=== PATIENT | male | born 2005 | race Caucasian/White ===

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

== ENCOUNTER 2025-01-16 21:27 | Emergency (ER) | payer OTHER, SELFPAY ==
[2025-01-16 21:31] VITALS: BP 126/83; PULSE 80; RESP 18; TEMP 36.2; O2SAT 100; BMI 20.1
--- OUTSIDE RECORDS SUMMARY | 2025-01-16 22:02 | XMS RPT_ITS | CCD ---
Author Organization [facility] Care Team Providers Care Aircraft Communicator Name Role Phone BRYNN, DR REY Cadena Admitting Unavaila ble BRYNN, DR REY Cadena Primary Care Unavaila ble BRYNN, DR REY Cadena Attending Unavaila ble NO, DOCTOR ON Consulting Unavailable NO, DOCTOR ON Referring Unavailable BRYNN, DR REY Cadena Admitting Unavaila ble BRYNN, DR REY Cadena Primary Care Unavaila ble BRYNN, DR REY Cadena Attending Unavaila ble NO, DOCTOR ON Consulting Unavailable Aakash Yeung Referring Unavailable Aakash Yeung Primary Care Unavailable Marcos Naranjo Attending Unavailable PETER VICK, SHERINE Attending Unavailable Martell Yeung MD Primary Care Provider Octavio Forrester DO Primary Care Provid er JONELLE HUMPHREYS Attending OCTAVIO [facility] Care OCTAVIO Hensley Attending Soumya land SELF Referring Unavailable VICTORIA FORRESTERLAND DELMER Primary Care Soumya land Medications Current Medications Medication Drug Class(es) Dates Sig (Normalized) Sig (Original) citalopram 20 mg oral tablet (3 sources) Serotonin Reuptake Inhibitor Start: 11-15-2023 End: 02-23-2024 take 0.5 tablet by mouth once daily, then take 1 tablet by mouth once daily citalopram (CELEXA) 20 mg tablet Indications: Anxiety with depression Take 0.5 tablets by mouth once daily for 10 days, THEN 1 tablet once daily. 95 tablet 11/15/2023 Active 24 hr venlafaxine 37.5 mg extended release oral capsule (1 source) Serotonin and Norepinephrine Reuptake Inhibitor Start: 03-10-2024 venlafaxine ER (EFFEXOR XR) 37.5 mg 24 hr capsule Indications: Generalized anxiety disorder , Major depressive disorder, recurrent episode, mild (HCC) Take 1 tablet every morning x 2 weeks, if tolerated increase to 2 tablets every morning. 56 capsule 1 03/10/2024 Active Problems Active Problems Problem Classification Problem Date Documented Da te Episodic/Chronic Anxiety disorders (4 sources) Mixed anxiety and depressive disorder; Translations: [Other specified anxiety disorders] Onset: 11-15-2023 11-15-2023 Chronic Mood disorders (2 sources) Recurrent major depressive episodes, mild ; Translations: [Major depressive disorder, recurrent, mild] Onset: 03-10-2024 03-10-2024 Chronic Open wounds of extremities (1 source) Laceration of upper arm; Translations: [Laceration without foreign body of right upper arm, initial encounter] Onset: 06-13-2023 Episodic Other nutritional; endocrine; and metabolic disorders (1 source) Body mass index less than 20; Translations: [Body mass index (BMI) 19.9 or less, adult] 11-15-2023 Episodic Past or Other Problems Problem Classification Problem Date Documented Da te Episodic/Chronic Other nutritional; endocrine; and metabolic disorders (1 source) Body mass index (BMI) 19.9 or less, adult; Translations: [Body mass index (BMI) less than 19 in adult] Onset: 11-15-2023 Episodic Results Test Name Value Interpretation Reference Range Boyd marcos BAKARIFrederick 03-10-2024 CNOV Office Visit ([id number] ) CLARITZA EVANS ([id number]) 1 M Date Time Provider Department 03/10/24 10:00 AM JONELLE HUMPHREYS [id number] During your visit today, we recorded the following information about you: Jonelle Humphreys APRN.CNP 03/10/2024 12:42 PM Signed [facility]ALUATION PATIENT: Claritza Curieljhon MRD: [id number] DATE: March 10, 2024 IDENTIFYING INFORMATION: Claritza is a 18 year old single male with a history of depression and anxiety. Patient was referred by pcp Dr. Tevin Forrester. CHIEF COMPLAINT: Patient presents with: Anxiety Depression HPI: This is the patients initial assessment. He admits he was having more mood issues over the past few months. He believes his mom is showing care for him. He acknowledges a panic attack in November. None since, but has sparked concern with his mom. He spoke of his concerns of mom having long history of her own MH issues. He admits he avoids some times of avoiding emotions, but is not feeling overly emotional. He admits his GF of a year is encouraging and supportive to him. He spoke of working on being more in tune with his emotions. He spoke of his family having concerns of his mental health for many years. He admits he is not very reactive overall. He states he likes being busy, working in the [employer], as a kid did [employer], he is learning to cook with his GF. He skateboards. He starts and stops interests quickly. Overall he feels he is unsuccessful and has trouble not feeling low self worth. He is not overly pessimistic, but admits he feels insecure. I know I want to do better at adulting. He has deleted most social media to help avoid comparing. Denies SI/HI/ and A/V H. No concern of paranoia, delusions, or psychosis. The patient does not appear to be responding to internal or external stimuli. 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 The routine of his jobs have been difficult. Goes to bed around 930, takes about an hour to fall asleep. Has tried to add routines to sleep hygiene. Wakes around 630. He completes self care regularly. Does not have good diet habits. He has some times of easily getting bored, but does complete tasks. No ocd tendencies. Mild impulsivity, mostly with flipping bikes. He is more interested in impromptu trips. No gambling or promiscuity reported or suspected. He admits the near panic has been occurring since November, but is not hindering him from being productive. He feels he managed it well and has been able to avoid these thoughts well. At age 14, a close friend and this greatly affected him. He does not feel this was a turning point for his anxiety, he had already been struggling with anxiety. Current psychiatric medications: Celexa 20mg --not taking PDMP: 350--hydrocodone 05/13/22 Patient goals for treatment: I am here because of my mom. PSYCHIATRIC ROS: Depression: some sadness, lack of enjoyment with activities. Sara: None reported or suspected Psychosis: None reported or suspected PARKER: Some worry, ruminating, no global worries OCD: No repetitive actions, but some ruminative thoughts. He admits he can be particular about tasks. PTSD: denies ROS SUBSTANCE ABUSE HISTORY: Alcohol: Denies Tobacco: denies Marijuana: denies Illegal drug Use: denies PSYCHIATRIC HISTORY: Past Diagnoses: Anxiety, panic Hospitalizations: denies Counseling history :Began in Middle school d/t panic/anxiety attacks. Medication Trials: Celexa-didn't take regularly, Psychiatrist: Psychiatrist Agency: Denies investment manager: susan Therapist: None Self harm: denies, picky eater. Notable food aversions as a kid, better now. Suicide attempts: denies ECT: No TMS: No Ketamine infusions: No RATING SCALES: PHQ-9 PHQ-9 Score: 8 (03/10/2024 10:00 AM) (0-4) minimal depression, (5-9) mild depression, (10-14) moderate depression, (15-19) moderately severe depression, (20-27) severe depression PARKER-7 PARKER-7 Total Score: 11 (03/10/2024 10:00 AM) (0-4) minimal anxiety, (5-9) mild anxiety, (10-14) moderate anxiety, (15-21) severe anxiety [place] SUICIDE SEVERITY RATING SCALE 1.) Wish to be : Have you wished you were or wished you could go to sleep and not wake up? NO 2.) Suicidal Thoughts: Have you actually had any thoughts of killing yourself? NO 6.)Suicide Behavior Question: Have you ever done anything, started to do anything, or prepared to do anything to end your life?NO RISK LEVEL RISK/PROTECTIVE FACTOR SUICIDALITY POSSIBLE INTERVENTIONS High Psychiatric disorders with severe symptoms, or acute precipitating event; protective factors not relevant Potentially lethal suicide attempt or persistent ideation with strong intent or suicide rehearsal Admission generally indicated unless a significant change reduces risk. Suicide precautions Moderate Multi (more content not included)... Normal [facility] Sebastian 11-16-2023 [facility] Telephone (FPDOYL) CLARITZA EVANS ([id number]) 1 M Date Time Provider Department 11/16/23 OCTAVIO FORRESTERYL During your visit today, we recorded the following information about you: Iwona Gore 11/16/2023 4:25 PM Signed Consult to psychiatry Anxiety with depression Confirm [id number] Iwona Gore Allergies As of Date: 11/16/2023 (No Known Allergies) Date Reviewed: 11/15/2023 Reviewed by: Rosangela Mckeon LPN - Fully Assessed Reason for Visit: Consult [502] Cmt: Consult to psychiatry, anxiety with depression, confirm [id number] Prescriptions as of 11/16/2023 - citalopram (CELEXA) 20 mg tablet Take 0.5 tablets by mouth once daily for 10 days, THEN 1 tablet once daily. Problem List As Of Date: 11/16/2023 (None) Encounter Status:Closed by IWONA GORE on 11/16/23 [facility] CNOVon 11-15-2023 [facility] Office Visit (FPDOYL ) CLARITZA EVANS ([id number]) 1 M Date Time Provider Department 11/15/23 1:30 PM OCTAVIO FORRESTERYL During your visit today, we recorded the following information about you: Temperature Pulse Blood pressure Weight 98.8 degrees 90/minute 124/78 67.6 kg Height 1.854 m Octavio Forrester DO 11/23/2023 9:06 PM Signed [facility] [place] Octavio Forrester DO [address] [place] [address] Date of Evaluation: 11/15/2023 Patient Name: Claritza Evans : 2005 Chief Complaint: Patient presents with: Establish Care Depression: Feeling low the last couple weeks Anxiety: Feels like he has had anxiety for a long time please see depression screening Nursing Intake: There are no exam notes on file for this visit. Subjective Mr. Evans is a 18 year old male who presents with the following complaint(s): The history is provided by the patient. No speech and language tutor was used. Depression The patient's primary symptoms include agitation. Pertinent negatives include no weakness. This is a recurrent problem. The current episode started more than 1 month ago. The problem is unchanged. Past treatments include nothing. Anxiety The patient's primary symptoms include agitation. Pertinent negatives include no weakness. This is a recurrent problem. The current episode started more than 1 month ago. The problem is unchanged. Past treatments include nothing. Review of Systems Constitutional: Negative for fatigue and unexpected weight change. HENT: Negative for nosebleeds. Eyes: Negative for redness and visual disturbance. Respiratory: Negative for apnea, cough and shortness of breath. Cardiovascular: Negative for chest pain, palpitations and leg swelling. Genitourinary: Negative for hematuria. Neurological: Negative for dizziness, weakness, light-headedness, numbness and headaches. Hematological: Does not bruise/bleed easily. Psychiatric/Behavioral : Positive for agitation, depression and dysphoric mood. The patient is nervous/anxious. PAST MEDICAL HISTORY Diagnosis Date Acute appendicitis 12/2019 Frequent headaches Umbilical hernia PAST SURGICAL HISTORY Procedure Laterality Date LAPAROSCOPIC APPENDECTOMY 01/13/2020 TONSILLECTOMY HX Bilateral 2008 FAMILY HISTORY Problem Relation Age of Onset Depression Mother Anxiety disorder Mother Bipolar disorder Mother Hyperlipidemia Father No Known Problems Sister Lung Cancer Maternal Grandmother Cervical Cancer Maternal Grandmother other (Stomach Cancer) Paternal Grandmother Coronary Artery Disease Paternal Grandfather Heart Attack Paternal Grandfather Social History Tobacco Use Smoking status: Never Smokeless tobacco: Never Vaping Use Vaping status: Never Used Substance Use Topics Alcohol use: Never Drug use: Never Current Outpatient Medications Medication Sig citalopram (CELEXA) 20 mg tablet Take 0.5 tablets by mouth once daily for 10 days, THEN 1 tablet once daily. No current facility-administered medications for this visit. I have confirmed and edited as necessary the past medical, family and social histories, HPI, and ROS obtained by others. Objective BP 124/78 Pulse 90 Temp 98.8 Ht 6' 1 (1.85m) Wt 149 lb (67.6kg) SpO2 98% BMI 19.66 kg/(m2). Physical Exam Vitals and nursing note reviewed. Constitutional: General: He is not in acute distress. Appearance: Normal appearance. He is well-developed. He is not ill-appearing. HENT: Head: Normocephalic. Nose: Nose normal. Mouth/Throat: Mouth: Mucous membranes are moist. Pharynx: Oropharynx is clear. Uvula midline. No oropharyngeal exudate or posterior oropharyngeal erythema. Eyes: General: Lids are normal. Vision grossly intact. Gaze aligned appropriately. Extraocular Movements: Extraocular movements intact. Conjunctiva/sclera: Conjunctivae normal. Pupils: Pupils are equal, round, and reactive to light. Neck: Thyroid: No thyroid mass, thyromegaly or thyroid tenderness. Trachea: Trachea and phonation normal. Cardiovascular: Rate and Rhythm: Normal rate and regular rhythm. Pulses: Normal pulses. Heart sounds: Normal heart sounds. Musculoskeletal: General: Normal range of motion. Right shoulder: Normal. Left shoulder: Normal. Cervical back: Normal, full passive range of motion without pain and neck supple. No spinous process tenderness. Thoracic back: Normal. Lumbar back: Normal. Right knee: Normal. Left knee: Normal. Right lower leg: No edema. Left lower leg: No edema. Skin: General: Skin is warm and dry. Neurological: General: No focal deficit present. Mental Status: He is alert and oriented to person, place, and time. Mental status is at baseline. Sensory: (more content not included)... Normal [facility] Office Visit Reporton 2022 Office Visit Report [facility] [address] [place] [address] OFFICE VISIT Date of Service: 03/19/22 MR#: [id number] Acct: [id number] Patient: CLARITZA EVANS Rep #: [id number] : 2005 Provider: PHUC Naranjo Age/Sex: 16/M Location[facility] Status: Signed Intake Intake Visit Reasons: RESP FIT CLEARANCE Chief Complaint: Abdominal pain/fever and occasional nausea Allergies No Known Allergies Allergy (Verified 01/13/20 02:05) Office Procedures Now [facility] Billing Sheet Testing Respirator Clearance (form only): Yes 03/19/22 1520 Date Marcos Cowan Signature: Date (if applicable) CC: Normal [facility] CORONAVIRUS PCR - [facility] 07-12-2020 SARS-CoV-2 (COVID-19) RNA JINNY+probe Ql (Unsp spec) Negative Normal NORMAL: NEGATIVE [facility] Comment on above: Performed By: #### [id number] #### [facility],[address] [place] [address] SEND TO IC? YES Normal [facility] Comment on above: Result Comment: RESU LTS FAXED TO INFECTION CONTROL. SARS-CoV-2 THIS TEST IS BEING USED UNDER THE FDA EUA PROCEDURE. THIS ASSAY HAS BEEN VALIDATED IN THE [facility] FOR USE WITH NASOPHARYNGEAL SPECIMENS IN [facility]. INTERPRETIVE DATA LABORATORY TEST RESULTS SHOULD ALWAYS BE CONSIDERED IN THE CONTEXT OF CLINICAL OBSERVATIONS AND EPIDEMIOLOGICAL DATA IN MAKING FINAL DIAGNOSIS AND PATIENT MANAGEMENT DECISIONS. PATIENT MANAGEMENT SHOULD FOLLOW CURRENT CDC GUIDELINES. A POSITIVE TEST RESULT FOR COVID-19 INDICATES THAT RNA FROM SARS-CoV-2 WAS DETECTED, AND THE PATIENT IS INFECTED WITH THE VIRUS AND PRESUMED TO BE CONTAGIOUS. A NEGATIVE TEST RESULT FOR THIS TEST MEANS THAT SARS-CoV-2 RNA WAS NOT PRESENT IN THE SPECIMEN ABOVE THE LIMIT OF DETECTION. HOWEVER, A NEGATVIE RESULT DOES NOT RULE OUT COVID-19 AND SHOULD NOT BE USED THE SOLE BASIS FOR TREATMENT OR PATIENT MANAGEMENT DECISIONS. A NEGATIVE RESULT DOES NOT EXCLUDE THE POSSIBILITY OF COVID-19. WHEN DIAGNOSTIC TESTING IS NEGATIVE, THE POSSIBLILTY OF A FALSE NEGATIVE RESULT SHOULD BE CONSIDERED IN THE CONTEXT OF A PATIENT'S RECENT EXPOSURES AND THE PRESENCE OF CLINICAL SIGNS AND SYMPTOMS CONSISTENT WITH COVID-19. THE POSSIBILITY OF A FALSE NEGATIVE RESULT SHOULD ESPECIALLY BE CONSIDERED IF THE PATIENT'S RECENT EXPOSURES OR CLINICAL PRESENTATION INDICATE THAT COVID-19 IS LIKELY, AND DIAGNOSTIC TESTS FOR OTHER CAUSES OF ILLNESS (e.g., OTHER RESPIRATORY ILLNESS) ARE NEGATIVE. IF COVID-19 IS STILL SUSPECTED BASED ON EXPOSURE HISTORY TOGETHER WITH OTHER CLINICAL FINDINGS, RE-TESTED SHOULD BE CONSIDERED BY HEALTHCARE PROVIDERS IN CONSULTATION WITH PUBLIC HEALTH AUTHORITIES. Performed By: #### 2 [id number] #### [facility],[address] [place] [address] EMERGENCY REPORTon 09-24-202 0 EMERGENCY REPORT [facility] EMERGENCY ROOM REPORT NAME ACCOUNT SEX AGE ADMIT DISCHARGE PT MED. RECORD# NUMBER DATE DATE TYPE CLARITZA EVANS [id number] M 14 09/23/19 09/23/19 3 G [id number] ROOM: ER DATE OF : 2005 DICTATING PHYSICIAN: Rey Swain CHIEF COMPLAINT/HISTORY OF PRESENT ILLNESS: Patient came in. Patient was at [place] yesterday and he landed on his left wrist. He had wrist pain. He says it is a 5 out of 10. It is worse when he moves, better with rest. He continued to have pain today so he came in to the emergency department. Did not have any neck pain. No chest pain. No shortness of breath. REVIEW OF SYSTEMS: Six systems reviewed and negative except as mentioned above. He is here with his mother who appears concerned about him. PHYSICAL EXAMINATION: He is awake, alert, oriented male in no acute distress. He is afebrile. Pulse is 68, respirations 16, blood pressure 121/92, pulse oximetry 98% on room air. Head is normocephalic, atraumatic. Eyes: Pupils equal, round, active to light. Nares are patent. Throat has adequate oral moisture. Dentition is intact. Neck supple. Heart regular without murmur. S1 equals S2. No S3 or S4 appreciated. Lungs are clear to auscultation bilaterally. No rales, rhonchi or retractions. Abdomen: Soft, nontender, nondistended. Skin is warm and dry. Patient does have tenderness over the distal radius area. DIAGNOSTIC DATA: Had x-rays obtained. Showed a fracture of the distal radius and the ulnar styloid is also fractured. EMERGENCY DEPARTMENT COURSE AND TREATMENT: He is placed in a volar splint. He will be referred to Dr. Platt for orthopedics. I did write him for Motrin for pain. He is right hand dominant. DIAGNOSIS: Acute left wrist fracture, status post fall. Dictated By: Rey Swain DO 09/23/19 11:37 JOB #: [id number] Transcribed By: [email or web address] 09/24/19 10:31 Electronically signed by: ADALGISA Swain D.O. Page 1 of 2 CLARITZA EVANS Emergency Room Report NATHAN CLARITZA Flores : 2005 09/25/19 20:11 Page 2 of 2 CLARITZA EVANS Emergency Room Report Normal [facility] WRIST COMPLETE LTon 09-23-19 WRIST COMPLETE [place] [address] Patient: NATHAN CLARITZA G. Phone#: : 2005 Age: 14 Gender: M Pt. Type: ER Account: [id number] Location: [facility] Ordering: REY SWAIN Exam Date: 09/23/2019/10:53 Family Phys: Charge Code: 711660 Physician: Rice Order #: [id number] DLP Dose#: PROCEDURE: X-RAY WRIST LT COMPLETE MIN 3 VIEWS COMPARISON: None. INDICATIONS: Trauma. FINDINGS: BONES: There is a buckle fracture of the distal radius with mild dorsal angulation. There is of the ulnar styloid process. SOFT TISSUES: Negative. No visible soft tissue swelling. EFFUSION: None visible. OTHER: Negative. CONCLUSION: 1. Buckle fracture of the distal radius 2. Ulnar styloid process fracture Dictated by: Rhina Rizo MD on 09/23/2019 at 16:09 Approved by: Rhina Rizo MD on 09/23/2019 at 16:[address] [facility] Vital Signs Date Time Vital Sign Value Performing Clinician Jose Cruz tay 11-15-2023 13:25-0400 Body height 185.4 cm Godwin Usama DO Work Phone: [facility] 11-15-2023 13:25-0400 Body mass index (BMI) [Ratio] 19.66 kg/m2 Godwin Usama DO Work Phone: [facility] 11-15-2023 13:25-0400 Body temperature 98.8 [degF] Octavio Usama DO Work Phone: [facility] 11-15-2023 13:25-0400 Body weight 67.59 kg Godwin Usama DO Work Phone: [facility] 11-15-2023 13:25-0400 Diastolic blood pressure 78 mm[Hg] Octavio Usama DO Work Phone: [facility] 11-15-2023 13:25-0400 Heart rate 90 /min Octavio Usama DO Work Phone: [facility] 11-15-2023 13:25-0400 SaO2% (BldA) [Mass fraction] 98 % Octavio Usama DO Work Phone: [facility] 11-15-2023 13:25-0400 Systolic blood pressure 124 mm[Hg] Octavio Usama DO Work Phone: [facility] 06-13-2023 14:27-0400 Blood Pressure Cuff Size NIDAL CHOUJAA DO [facility] 06-13-2023 14:27-0400 Blood Pressure Location NIDAL CHOUJAA DO [facility] 06-13-2023 14:27-0400 Blood Pressure Method NIDAL CHOUJAA DO [facility] 06-13-2023 14:27-0400 Body temperature 98.6 [degF] NIDAL CHOUJAA DO [facility] 06-13-2023 14:27-0400 Diastolic Blood Pressure Non-Invasive 70 mm[Hg] NIDAL CHOUJAA DO [facility] 06-13-2023 14:27-0400 Heart rate 97 /min NIDAL CHOUJAA DO [facility] 06-13-2023 14:27-0400 Respiratory rate 18 /min NIDAL CHOUJAA DO [facility] 06-13-2023 14:27-0400 Systolic Blood Pressure Non-Invasive 114 mm[Hg] NIDAL CHOUJAA DO [facility] Encounters Encounter Date Encounter Type Care Provider Facility Start: 03-10-2024 End: 03-10-2024 Patient encounter procedure Jonelle LubinPetr TAPER AND FLOATER.SCIENTIFIC RESEARCH ASSOCIATE Work Phone: [facility] Comment on above: Generalized anxiety disorder (Primary Dx); Major depressive disorder, recurrent episode, mild (HCC) Start: 03-10-2024 End: 03-10-2024 ambulatory JONELLE PETR Facility:[facility] Start: 11-16-2023 End: 11-16-2023 Telephone encounter Octavio Forrester DO Work Phone: [facility] [place] Comment on above: Consult (Consult to psychiatry, anxiety with depression, confirm [id number]) Start: 11-15-2023 End: 11-15-2023 Patient encounter procedure Godwin Delmer Usama DO [facility] Comment on above: Anxiety with depress ion (Primary Dx); Body mass index (BMI) less than 19 in adult Start: 11-15-2023 End: 11-15-2023 ambulatory OCTAVIO DELMER USAMA Facility:[facility] Start: 11-04-2023 End: 11-04-2023 ambulatory Poonam M Nick RN NURSE CASTING ROOM OPERATOR Comment on above: Depression Start: 06-13-2023 End: 06-13-2023 Emergency department patient visit SHERINE GREEN DO Facility:[facility] Start: 06-13-2023 End: 06-13-2023 Emergency department patient visit SHERINE GREEN DO [facility] Start: 03-19-2022 End: 03-19-2022 ambulatory Aakash Yeung Facility:[facility] Start: 07-12-2020 End: 07-12-[address] REY SWAIN [facility] Start: 09-23-2019 End: 09-23-2019 Emergency department patient visit DR REY SWAIN [facility] Plan of Treatment Date Care Activity Detail Author Start: 12-15-2025 Urine microalbumin profile DTaP,Tdap,Td Vaccine (6 - Td or Tdap) [facility] Start: 01-11-2024 End: 01-11-2024 Patient encounter procedure 01/11/2024 1:00 PM EST Office Visit [facility] [address] [place] [address] Jonelle Humphreys APRN.SCIENTIFIC RESEARCH ASSOCIATE [address] [place] [address] anxiety and depression [facility] Comment on above: anxiety and depressi on Start: 12-29-2023 End: 12-29-2023 Patient encounter procedure 12/29/2023 11:00 AM EDT Office Visit [facility] [place] [address] [place] [address] Octavio Forrester DO [address] [place] [address] 6 week f/u [facility] Comment on above: 6 week f/u Start: 11-15-2023 End: 11-15-2023 Patient encounter procedure 11/15/2023 1:30 PM EDT Office Visit [facility] [address] [place] [address] Octavio Forrester DO [address] [place] [address] Est care and mental health referral [facility] Comment on above: Est care and mental health referral Start: 10-31-2023 Covid-19 Vaccine ( season) Covid-19 Vaccine () [facility] Start: 10-31-2023 Covid-19 Vaccine () Covid-19 Vaccine () [facility] Start: 10-31-2023 Influenza vaccination Influenza Vacc ine (#1) [facility] Start: 09-02-2021 Anxiety Screening Anxiety Screening [facility] Start: 09-02-2021 Depression Screening Depression Scre ening [facility] Start: 09-02-2021 Hepatitis C screening Hepatitis C Sc quiana [facility] Start: 09-02-2021 HIV screening HIV Screening [facility] Start: 2019 Meningococcal B Vacc ine: Consider Based On Risk (1 of 2 - Patient Seeks Protection) Meningococcal B Vaccine: Consider Based On Risk (1 of 2 - Patient Seeks Protection) [facility] Start: 09-02-2017 Peds To Adult Transi tion Annual Assessment Peds To Adult Transition Annual Assessment [facility] Start: 2015 Peds To Adult Transi tion Initial Discussion Peds To Adult Transition Initial Discussion [facility] Immunizations Immunization Date Immunization Notes Care Provider Fa cility 06-13-2023 tetanus toxoid, redu sae diphtheria toxoid, and acellular pertussis vaccine, adsorbed NIDAL CHOUJAA DO [facility] 01-05-2018 influenza virus vacc ine, unspecified formulation Poonam Romero RN [facility] 12-31-2016 Human Papillomavirus 9-valent vaccine Poonam Romero RN [facility] 12-31-2016 influenza, injectabl e, quadrivalent, contains preservative Poonam Nikc [facility] 02-06-2016 Human Papillomavirus 9-valent vaccine Poonam Romero [facility] 12-16-2015 Human Papillomavirus 9-valent vaccine Poonam Romero [facility] 12-16-2015 influenza, injectabl e, quadrivalent, contains preservative Poonam Romero [facility] 12-16-2015 meningococcal polysaccharide (groups A, C, Y and W-135) diphtheria toxoid conjugate vaccine (MCV4P) Poonam Romero [facility] 12-16-2015 tetanus toxoid, redu sae diphtheria toxoid, and acellular pertussis vaccine, adsorbed Poonam Romero [facility] 10-28-2011 hepatitis A vaccine, pediatric/adolescent dosage, 2 dose schedule Poonam Romero [facility] 07-31-2010 hepatitis A vaccine, pediatric/adolescent dosage, 2 dose schedule Poonamsa Romero [facility] 12-25-2008 hepatitis B vaccine, pediatric or pediatric/adolescent dosage Poonamsa Romero [facility] 12-13-2008 novel influenza-H1N1 -09, all formulations Poonam Romero [facility] 09-28-2008 Diphtheria, tetanus toxoids and acellular pertussis vaccine, and poliovirus vaccine, inactivated Poonam Romero [facility] 09-28-2008 measles, mumps and rubella virus vaccine Poonam Romero [facility] 09-28-2008 varicella virus vaccine Poonam booth [facility] 09-30-2004 diphtheria, tetanus toxoids and acellular pertussis vaccine Poonam Romero [facility] 09-30-2004 diphtheria, tetanus toxoids and acellular pertussis vaccine, 5 pertussis antigens Poonam Romero [facility] 09-30-2004 measles, mumps and rubella virus vaccine Poonam Romero [facility] 09-30-2004 varicella virus vaccine Poonam booth [facility] 03-26-2004 DTaP-hepatitis B and poliovirus vaccine Poonam Romero [facility] 03-26-2004 haemophilus influenz ae type b vaccine, conjugate unspecified formulation Poonam Romero [facility] 03-26-2004 haemophilus influenz ae type b vaccine, PRP-T conjugate Poonam Romero [facility] 2003 DTaP-hepatitis B and poliovirus vaccine Poonam Romero [facility] Work Phone: 2003 haemophilus influenz ae type b vaccine, conjugate unspecified formulation Poonam Romero RN [facility] 2003 haemophilus influenz ae type b vaccine, PRP-T conjugate Poonam Romero RN [facility] Payers Date Payer Category Payer Self-pay 2018 Unknown [employer]MO [employer] PPO [id number] 2018-Present [phone] [address] [place] [address] PPO [id number] 2018 Unknown [id number] 2003 Unknown [id number] 1972 Unknown [id number] 1972 Unknown [id number] Unknown [id number] Unknown [id number] Social History Date Type Detail Facility Tobacco smoking status [facility] Start: 2003 Sex Assigned At Male [facility] Start: 02-04-2019 Tobacco smoking status NHIS Never smoked tobacco [facility] Start: 02-04-2019 Tobacco use and exposure Smokeless tobacco non-user [facility] Start: 03-12-2020 End: 03-10-2024 Alcoholic beverage intake Lifetime non-drinker (finding) [facility] Start: 03-12-2020 End: 11-15-2023 History of Social function [facility] Start: 03-12-2020 End: 11-15-2023 Alcohol Use Disorder Identification Test - Consumption [AUDIT-C] [facility] How often to you hav e a drink containing alcohol? Never [facility] Average Number of Drinks Not on file [facility] Start: 03-12-2020 Gender identity Identifies as male gender (finding) [facility] Start: 03-12-2020 Sexual orientation Heterosexual (finding) [facility] Functional Status Date Assessment Result Facility 06-13-2023 Functional Status [facility] Mental Status Date Assessment Result Facility 06-13-2023 Mental Status Orientation Oriented x 4 [facility] Clinical Notes 06-13-2023 to 03-10-2024 Jonelle Humphreys APRN.SCIENTIFIC RESEARCH ASSOCIATE - 03/10/2024 10:02 AM ESTTelephone Encounter - Iwona Gore - 11/16/2023 4:24 PM EDTTelephone Encounter - Iwona Gore - 11/16/2023 4:24 PM EDT Note Date & Type Note Facility 03-10-2024 Note HNO ID: [id number] Author: JONELLE HUMPHREYS APRN.SCIENTIFIC RESEARCH ASSOCIATE Service: ? Author Type: Nurse Practitioner Type: Progress Notes Filed: 03/10/2024 12:42 Note Text: [facility] INITIAL PSYCHIATRIC EVALUATION PATIENT: Claritza Evans MRD: [id number] DATE: March 10, 2024 IDENTIFYING INFORMATION: Claritza is a 18 year old single male with a history of depression and anxiety. Patient was referred by pcp Dr. Tevin Forrester. CHIEF COMPLAINT: Patient presents with: Anxiety Depression HPI: This is the patients initial assessment. He admits he was having more mood issues over the past few months. He believes his mom is showing care for him. He acknowledges a panic attack in November. None since, but has sparked concern with his mom. He spoke of his concerns of mom having long history of her own MH issues. He admits he avoids some times of avoiding emotions, but is not feeling overly emotional. He admits his GF of a year is encouraging and supportive to him. He spoke of working on being more in tune with his emotions. He spoke of his family having concerns of his mental health for many years. He admits he is not very reactive overall. He states he likes being busy, working in the garage, as a kid did legos, he is learning to cook with his GF. He skateboards. He starts and stops interests quickly. Overall he feels he is unsuccessful and has trouble not feeling low self worth. He is not overly pessimistic, but admits he feels insecure. I know I want to do better at adulting. He has deleted most social media to help avoid comparing. Denies SI/HI/ and A/V H. No concern of paranoia, delusions, or psychosis. The patient does not appear to be responding to internal or external stimuli. 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 The routine of his jobs have been difficult. Goes to bed around 930, takes about an hour to fall asleep. Has tried to add routines to sleep hygiene. Wakes around 630. He completes self care regularly. Does not have good diet habits. He has some times of easily getting bored, but does complete tasks. No ocd tendencies. Mild impulsivity, mostly with flipping bikes. He is more interested in impromptu trips. No gambling or promiscuity reported or suspected. He admits the near panic has been occurring since November, but is not hindering him from being productive. He feels he managed it well and has been able to avoid these thoughts well. At age 14, a close friend and this greatly affected him. He does not feel this was a turning point for his anxiety, he had already been struggling with anxiety. Current psychiatric medications: Celexa 20mg --not taking PDMP: 350--hydrocodone 05/13/22 Patient goals for treatment: I am here because of my mom. PSYCHIATRIC ROS: Depression: some sadness, lack of enjoyment with activities. Sara: None reported or suspected Psychosis: None reported or suspected PARKER: Some worry, ruminating, no global worries OCD: No repetitive actions, but some ruminative thoughts. He admits he can be particular about tasks. PTSD: denies ROS SUBSTANCE ABUSE HISTORY: Alcohol: Denies Tobacco: denies Marijuana: denies Illegal drug Use: denies PSYCHIATRIC HISTORY: Past Diagnoses: Anxiety, panic Hospitalizations: denies Counseling history :Began in Middle school d/t panic/anxiety attacks. Medication Trials: Celexa-didn't take regularly, Psychiatrist: Psychiatrist Agency: Denies investment manager: denies Therapist: None Self harm: denies, picky eater. Notable food aversions as a kid, better now. Suicide attempts: denies ECT: No TMS: No Ketamine infusions: No RATING SCALES: PHQ-9 PHQ-9 Score: 8 (03/10/2024 10:00 AM) (0-4) minimal depression, (5-9) mild depression, (10-14) moderate depression, (15-19) moderately severe depression, (20-27) severe depression PARKER-7 PARKER-7 Total Score: 11 (03/10/2024 10:00 AM) (0-4) minimal anxiety, (5-9) mild anxiety, (10-14) moderate anxiety, (15-21) severe anxiety [place] SUICIDE SEVERITY RATING SCALE 1.) Wish to be : Have you wished you were or wished you could go to sleep and not wake up? NO 2.) Suicidal Thoughts: Have you actually had any thoughts of killing yourself? NO 6.)Suicide Behavior Question: Have you ever done anything, started to do anything, or prepared to do anything to end your life?NO RISK LEVEL RISK/PROTECTIVE FACTOR SUICIDALITY POSSIBLE INTERVENTIONS High Psychiatric disorders with severe symptoms, or acute precipitating event; protective factors not relevant Potentially lethal suicide attempt or persistent ideation with strong intent or suicide rehearsal Admission generally indicated unless a significant change reduces risk. Suicide precautions Moderate Multiple risk factors, few protective factors Suicidal ideation with plan, but no intent or behavior Admission may be necessary depending on risk factors. Develop crisis plan. Give connie (more content not included)... [facility] 03-10-2024 History of Presen t illness Narrative Images from the original note were not included. [facility] INITIAL PSYCHIATRIC EVALUATION PATIENT: Claritza Evans MRD: [id number] DATE: March 10, 2024 IDENTIFYING INFORMATION: Claritza is a 18 year old single male with a history of depression and anxiety. Patient was referred by pcp Dr. Tevin Forrester. CHIEF COMPLAINT: Patient presents with: Anxiety Depression HPI: This is the patients initial assessment. He admits he was having more mood issues over the past few months. He believes his mom is showing care for him. He acknowledges a panic attack in November. None since, but has sparked concern with his mom. He spoke of his concerns of mom having long history of her own MH issues. He admits he avoids some times of avoiding emotions, but is not feeling overly emotional. He admits his GF of a year is encouraging and supportive to him. He spoke of working on being more in tune with his emotions. He spoke of his family having concerns of his mental health for many years. He admits he is not very reactive overall. He states he likes being busy, working in the garage, as a kid did [employer], he is learning to cook with his GF. He skateboards. He starts and stops interests quickly. Overall he feels he is unsuccessful and has trouble not feeling low self worth. He is not overly pessimistic, but admits he feels insecure. I know I want to do better at adulting. He has deleted most social media to help avoid comparing. Denies SI/HI/ and A/V H. No concern of paranoia, delusions, or psychosis. The patient does not appear to be responding to internal or external stimuli. 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 The routine of his jobs have been difficult. Goes to bed around 930, takes about an hour to fall asleep. Has tried to add routines to sleep hygiene. Wakes around 630. He completes self care regularly. Does not have good diet habits. He has some times of easily getting bored, but does complete tasks. No ocd tendencies. Mild impulsivity, mostly with flipping bikes. He is more interested in impromptu trips. No gambling or promiscuity reported or suspected. He admits the near panic has been occurring since November, but is not hindering him from being productive. He feels he managed it well and has been able to avoid these thoughts well. At age 14, a close friend and this greatly affected him. He does not feel this was a turning point for his anxiety, he had already been struggling with anxiety. Current psychiatric medications: Celexa 20mg --not taking PDMP: 350--hydrocodone 05/13/22 Patient goals for treatment: I am here because of my mom. PSYCHIATRIC ROS: Depression: some sadness, lack of enjoyment with activities. Sara: None reported or suspected Psychosis: None reported or suspected PARKER: Some worry, ruminating, no global worries OCD: No repetitive actions, but some ruminative thoughts. He admits he can be particular about tasks. PTSD: denies ROS SUBSTANCE ABUSE HISTORY: Alcohol: Denies Tobacco: denies Marijuana: denies Illegal drug Use: denies PSYCHIATRIC HISTORY: Past Diagnoses: Anxiety, panic Hospitalizations: denies Counseling history :Began in Middle school d/t panic/anxiety attacks. Medication Trials: Celexa-didn't take regularly, Psychiatrist: Psychiatrist Agency: Denies investment manager: susan Therapist: None Self harm: denies, picky eater. Notable food aversions as a kid, better now. Suicide attempts: denies ECT: No TMS: No Ketamine infusions: No RATING SCALES: PHQ-9 PHQ-9 Score: 8 (03/10/2024 10:00 AM) (0-4) minimal depression, (5-9) mild depression, (10-14) moderate depression, (15-19) moderately severe depression, (20-27) severe depression PARKER-7 PARKER-7 Total Score: 11 (03/10/2024 10:00 AM) (0-4) minimal anxiety, (5-9) mild anxiety, (10-14) moderate anxiety, (15-21) severe anxiety [place] SUICIDE SEVERITY RATING SCALE 1.) Wish to be : Have you wished you were or wished you could go to sleep and not wake up? NO 2.) Suicidal Thoughts: Have you actually had any thoughts of killing yourself? NO 6.)Suicide Behavior Question: Have you ever done anything, started to do anything, or prepared to do anything to end your life?NO RISK LEVEL RISK/PROTECTIVE FACTOR SUICIDALITY POSSIBLE INTERVENTIONS High Psychiatric disorders with severe symptoms, or acute precipitating event; protective factors not relevant Potentially lethal suicide attempt or persistent ideation with strong intent or suicide rehearsal Admission generally indicated unless a significant change reduces risk. Suicide precautions Moderate Multiple risk factors, few protective factors Suicidal ideation with plan, but no intent or behavior Admission may be necessary depending on risk factors. Develop crisis plan. Give emergency/crisis numbers Low Modifiable risk factors, strong protective factors Thoughts of , no plan, intent or behavior Outpatient referral, symptom reduction. Give emergency/crisis numbers Risk level: none FAMILY PSYCHIATRIC HX: Mom-depression, anxiety, bipolar Dad-depression No Known family history or suicide attempts or completions. SOCIAL HISTORY: Guardian: None Born and raised: Born in [place], parents stayed . He has an older sister. Fairly close. 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 Financial support: Independent Relationships: GF x 1 year. Children: none Living Situation: with parents Weapons: Guns-locked Legal History: denies, speeding tickets Restorationist: Nothing that would interfere interfere with care Somatic complaints: none PAST MEDICAL HISTORY: PAST MEDICAL HISTORY Diagnosis Date Acute appendicitis 12/2019 Frequent headaches Umbilical hernia PAST SURGICAL HISTORY Procedure Laterality Date LAPAROSCOPIC APPENDECTOMY 01/13/2020 TONSILLECTOMY HX Bilateral 2007 ALLERGIES No Known Allergies PCP: Octavio Forrester, DO Current Outpatient Medications on File Prior to Visit Medication Sig citalopram (CELEXA) 20 mg tablet Take 0.5 tablets by mouth once daily for 10 days, THEN 1 tablet once daily. No current facility-administered medications on file prior to visit. VITAL SIGNS: There were no vitals taken for this visit. MENTAL STATUS EXAMINATION: Appearance: appears stated age, ,Male, well developed, well nourished, Casual clothing, grooming is Fair, Activity: Normal , Steady gait, good muscle tone, Behavior: Cooperative, mildly guarded, Fair eye contact, Speech: spontaneous , Normal rate, Normal volume, Clear, Mood: Irritable at times Affect: appropriate to content Thought Process: logical Thought Content: linear, No suicidal ideation, intent or plan., No homicidal ideation, intent or plan., Logical Phobia's NOne Nihilistic delusions: Cognition: Orientation: Person, Place, Time and Situation Attention: Intact Concentration: Intact Language: Intact Estimated Intelligence: Average Memory: Intact, remote and recent Insight: fair Judgement: fair LABS: None recent AIMS No data to display RISK ASSESSMENT: Discussed the risk and benefit of the medication, client demonstrates understanding. Discussed importance of the chosen treatment plan. Client agrees with the discussed plans and efforts to keep within the stated plan. PDMP website checked and validated. All prescriptions have been APPROPRIATELY filled. No suspicious activity was identified. 03/10/2024 by Jonelle Humphreys APRN.SCIENTIFIC RESEARCH ASSOCIATE PLAN: - Start Effexor XR 37.5mg daily x 2 weeks, then increase to 2 tablets daily. - Referral for counseling - OARRS report reviewed. - Explained to the patient risks, benefits, side effects of the medications. Risks and side effects explained but not limited to black box warning. The patient has the capacity and gives me informed consent for the medication. - Check yourself in the ER or call 911 for help if you have any suicidal or homicidal thoughts, or if not able to take care of self at home with supports. - Recommended healthy and balanced diet. - Recommended seeing a therapist. - Labs reviewed - Discussed the hazards of tobacco smoking (use). Smoking cessation recommended and techniques and options to help patient quit were discussed. - Discussed importance of regular exercise and recommended starting or continuing a regular exercise program for good health. I spent a total of 60 minutes on the date of service which included preparing to see the patient, [id number] patient care, completing clinical documentation, obtaining and/or reviewing separately obtained history, performing a midically appropriate examination, counseling and educating the patient/family/caregiver, and independently interpreting results (not separately reported). ASSESSMENT/PLAN: 1. Generalized anxiety disorder - ICD9: 300.02, ICD10: F41.1 (primary diagnosis) - CONSULT TO PSYCHOLOGY - VENLAFAXINE ER 37.5 MG CAPSULE,EXTENDED RELEASE 24 HR 2. Major depressive disorder, recurrent episode, mild (HCC) - ICD9: 296.31, ICD10: F33.0 - CONSULT TO PSYCHOLOGY - VENLAFAXINE ER 37.5 MG CAPSULE,EXTENDED RELEASE 24 HR Patient understands and agrees with the treatment plan: Yes Return in about 6 weeks (around 04/21/2024). Jonelle Humphreys APRN.SCIENTIFIC RESEARCH ASSOCIATE documented in this encounter [facility] 11-16-2023 Telephone encounter Note Consult to psychiatry Anxiety with depression Confirm [id number] Iwona Gore [facility] 11-16-2023 Miscellaneous Notes Consult to psychiatry Anxiety with depression Confirm [id number] Iwona Gore documented in this encounter [facility] 11-15-2023 Note HNO ID: [id number] Author: OCTAVIO FORRESTER, DO Service: ? Author Type: Physician Type: Progress Notes Filed: 11/23/2023 21:06 Note Text: [facility] DO Usama [address] [place] [address] Date of Evaluation: 11/15/2023 Patient Name: Claritza Evans : 2005 Chief Complaint: Patient presents with: Establish Care Depression: Feeling low the last couple weeks Anxiety: Feels like he has had anxiety for a long time please see depression screening Nursing Intake: There are no exam notes on file for this visit. Subjective Mr. Evans is a 18 year old male who presents with the following complaint(s): The history is provided by the patient. No speech and language tutor was used. Depression The patient's primary symptoms include agitation. Pertinent negatives include no weakness. This is a recurrent problem. The current episode started more than 1 month ago. The problem is unchanged. Past treatments include nothing. Anxiety The patient's primary symptoms include agitation. Pertinent negatives include no weakness. This is a recurrent problem. The current episode started more than 1 month ago. The problem is unchanged. Past treatments include nothing. Review of Systems Constitutional: Negative for fatigue and unexpected weight change. HENT: Negative for nosebleeds. Eyes: Negative for redness and visual disturbance. Respiratory: Negative for apnea, cough and shortness of breath. Cardiovascular: Negative for chest pain, palpitations and leg swelling. Genitourinary: Negative for hematuria. Neurological: Negative for dizziness, weakness, light-headedness, numbness and headaches. Hematological: Does not bruise/bleed easily. Psychiatric/Behavioral: Positive for agitation, depression and dysphoric mood. The patient is nervous/anxious. PAST MEDICAL HISTORY Diagnosis Date Acute appendicitis 12/2019 Frequent headaches Umbilical hernia PAST SURGICAL HISTORY Procedure Laterality Date LAPAROSCOPIC APPENDECTOMY 01/13/2020 TONSILLECTOMY HX Bilateral 2008 FAMILY HISTORY Problem Relation Age of Onset Depression Mother Anxiety disorder Mother Bipolar disorder Mother Hyperlipidemia Father No Known Problems Sister Lung Cancer Maternal Grandmother Cervical Cancer Maternal Grandmother other (Stomach Cancer) Paternal Grandmother Coronary Artery Disease Paternal Grandfather Heart Attack Paternal Grandfather Social History Tobacco Use Smoking status: Never Smokeless tobacco: Never Vaping Use Vaping status: Never Used Substance Use Topics Alcohol use: Never Drug use: Never Current Outpatient Medications Medication Sig citalopram (CELEXA) 20 mg tablet Take 0.5 tablets by mouth once daily for 10 days, THEN 1 tablet once daily. No current facility-administered medications for this visit. I have confirmed and edited as necessary the past medical, family and social histories, HPI, and ROS obtained by others. Objective BP 124/78 Pulse 90 Temp 98.8 Ht 6' 1 (1.85m) Wt 149 lb (67.6kg) SpO2 98% BMI 19.66 kg/(m2). Physical Exam Vitals and nursing note reviewed. Constitutional: General: He is not in acute distress. Appearance: Normal appearance. He is well-developed. He is not ill-appearing. HENT: Head: Normocephalic. Nose: Nose normal. Mouth/Throat: Mouth: Mucous membranes are moist. Pharynx: Oropharynx is clear. Uvula midline. No oropharyngeal exudate or posterior oropharyngeal erythema. Eyes: General: Lids are normal. Vision grossly intact. Gaze aligned appropriately. Extraocular Movements: Extraocular movements intact. Conjunctiva/sclera: Conjunctivae normal. Pupils: Pupils are equal, round, and reactive to light. Neck: Thyroid: No thyroid mass, thyromegaly or thyroid tenderness. Trachea: Trachea and phonation normal. Cardiovascular: Rate and Rhythm: Normal rate and regular rhythm. Pulses: Normal pulses. Heart sounds: Normal heart sounds. Musculoskeletal: General: Normal range of motion. Right shoulder: Normal. Left shoulder: Normal. Cervical back: Normal, full passive range of motion without pain and neck supple. No spinous process tenderness. Thoracic back: Normal. Lumbar back: Normal. Right knee: Normal. Left knee: Normal. Right lower leg: No edema. Left lower leg: No edema. Skin: General: Skin is warm and dry. Neurological: General: No focal deficit present. Mental Status: He is alert and oriented to person, place, and time. Mental status is at baseline. Sensory: Sensation is intact. Motor: Motor function is intact. Psychiatric: Attention and Perception: Attention and perception normal. Mood and Affect: Mood normal. Speech: Speech normal. Behavior: Behavior normal. Thought Content: Thought content normal. Judgment: Judgment normal. Data Reviewed: No (more content not included)... [facility] 11-15-2023 History of Presen t illness Narrative Images from the original note were not included. [facility] [address] [place] [address] Date of Evaluation: 11/15/2023 Patient Name: Claritza Evans : 2005 Chief Complaint: Patient presents with: Establish Care Depression: Feeling low the last couple weeks Anxiety: Feels like he has had anxiety for a long time please see depression screening Nursing Intake: There are no exam notes on file for this visit. Subjective Mr. Evans is a 18 year old male who presents with the following complaint(s): The history is provided by the patient. No speech and language tutor was used. Depression The patient's primary symptoms include agitation. Pertinent negatives include no weakness. This is a recurrent problem. The current episode started more than 1 month ago. The problem is unchanged. Past treatments include nothing. Anxiety The patient's primary symptoms include agitation. Pertinent negatives include no weakness. This is a recurrent problem. The current episode started more than 1 month ago. The problem is unchanged. Past treatments include nothing. Review of Systems Constitutional: Negative for fatigue and unexpected weight change. HENT: Negative for nosebleeds. Eyes: Negative for redness and visual disturbance. Respiratory: Negative for apnea, cough and shortness of breath. Cardiovascular: Negative for chest pain, palpitations and leg swelling. Genitourinary: Negative for hematuria. Neurological: Negative for dizziness, weakness, light-headedness, numbness and headaches. Hematological: Does not bruise/bleed easily. Psychiatric/Behavioral: Positive for agitation, depression and dysphoric mood. The patient is nervous/anxious. PAST MEDICAL HISTORY Diagnosis Date Acute appendicitis 12/2019 Frequent headaches Umbilical hernia PAST SURGICAL HISTORY Procedure Laterality Date LAPAROSCOPIC APPENDECTOMY 01/13/2020 TONSILLECTOMY HX Bilateral 2007 FAMILY HISTORY Problem Relation Age of Onset Depression Mother Anxiety disorder Mother Bipolar disorder Mother Hyperlipidemia Father No Known Problems Sister Lung Cancer Maternal Grandmother Cervical Cancer Maternal Grandmother other (Stomach Cancer) Paternal Grandmother Coronary Artery Disease Paternal Grandfather Heart Attack Paternal Grandfather Social History Tobacco Use Smoking status: Never Smokeless tobacco: Never Vaping Use Vaping status: Never Used Substance Use Topics Alcohol use: Never Drug use: Never Current Outpatient Medications Medication Sig citalopram (CELEXA) 20 mg tablet Take 0.5 tablets by mouth once daily for 10 days, THEN 1 tablet once daily. No current facility-administered medications for this visit. I have confirmed and edited as necessary the past medical, family and social histories, HPI, and ROS obtained by others. Objective BP 124/78 Pulse 90 Temp 98.8 Ht 6' 1 (1.85m) Wt 149 lb (67.6kg) SpO2 98% BMI 19.66 kg/(m^2). Physical Exam Vitals and nursing note reviewed. Constitutional: General: He is not in acute distress. Appearance: Normal appearance. He is well-developed. He is not ill-appearing. HENT: Head: Normocephalic. Nose: Nose normal. Mouth/Throat: Mouth: Mucous membranes are moist. Pharynx: Oropharynx is clear. Uvula midline. No oropharyngeal exudate or posterior oropharyngeal erythema. Eyes: General: Lids are normal. Vision grossly intact. Gaze aligned appropriately. Extraocular Movements: Extraocular movements intact. Conjunctiva/sclera: Conjunctivae normal. Pupils: Pupils are equal, round, and reactive to light. Neck: Thyroid: No thyroid mass, thyromegaly or thyroid tenderness. Trachea: Trachea and phonation normal. Cardiovascular: Rate and Rhythm: Normal rate and regular rhythm. Pulses: Normal pulses. Heart sounds: Normal heart sounds. Musculoskeletal: General: Normal range of motion. Right shoulder: Normal. Left shoulder: Normal. Cervical back: Normal, full passive range of motion without pain and neck supple. No spinous process tenderness. Thoracic back: Normal. Lumbar back: Normal. Right knee: Normal. Left knee: Normal. Right lower leg: No edema. Left lower leg: No edema. Skin: General: Skin is warm and dry. Neurological: General: No focal deficit present. Mental Status: He is alert and oriented to person, place, and time. Mental status is at baseline. Sensory: Sensation is intact. Motor: Motor function is intact. Psychiatric: Attention and Perception: Attention and perception normal. Mood and Affect: Mood normal. Speech: Speech normal. Behavior: Behavior normal. Thought Content: Thought content normal. Judgment: Judgment normal. Data Reviewed: No new labs ASSESSMENT/PLAN: 1. Anxiety with depression - ICD9: 300.4, ICD10: F41.8 (primary diagnosis) - Start Citalopram - Start Psychiatry - CITALOPRAM 20 MG TABLET - CONSULT TO PSYCHIATRY Depression scale reviewed- is not suicidal. 2. Body mass index (BMI) less than 19 in adult - ICD9: V85.0, ICD10: Z68.1 Return in about 6 weeks (around 12/27/2023) for medication follow up. Octavio Forrester DO Attestation: Scribe Attestation: The patient is seen and examined by Dr. Forrester and the following reflects his/her service. Scribed by Mihai Mann November 15, 2023 1:51 PMProvider Attestation: I, Octavio Forrester DO personally performed the services described in this documentation. All medical record entries made by the scribe were at my direction and in my presence. I have reviewed the chart and discharge instructions (if applicable) and agree that the record reflects my personal performance and is accurate and complete. Electronically Signed: Octavio Forrester DO, November 15, 2023 2:06 PM documented in this encounter [facility] 11-04-2023 Telephone encounter Note Reason for Call: Severe depression Mother called without son present concerned regarding son's condition. She was trying to make a PCP appointment for patient and stated son is having a mental breakdown. Mother denies son has any suicidal or homicidal ideation. She states everything in the world is to much for him. He quit his job yesterday. He is unable to clean his room. He is crying constantly, just wants to go to sleep, can not motivate. He is unable to perform activities of daily living Onset Wednesday morning 0130 10/29/2023. No history of suicidal ideation or any known physical symptoms including chest pain or difficulty breathing Outcome: Go to ED Now Mother verbalized understanding but states son will not go to the ED. She did reach out to patient but he refused to speak with me. Mother is leaving work now to be with son who is alone at present She is aware of the mental health crisis number [phone] and was also given the number to schedule for behavioral health [phone] Mother was instructed to call 911 for worsening symptoms. She verbalized understanding. Reason for Disposition [1] Depression AND [2] unable to do any of normal activities (e.g., self care, school, work; in comparison to baseline). Protocols used: [id number] [facility] 11-04-2023 Miscellaneous Notes Reason for Call: Severe depression Mother called without son present concerned regarding son's condition. She was trying to make a PCP appointment for patient and stated son is having a mental breakdown. Mother denies son has any suicidal or homicidal ideation. She states everything in the world is to much for him. He quit his job yesterday. He is unable to clean his room. He is crying constantly, just wants to go to sleep, can not motivate. He is unable to perform activities of daily living Onset Wednesday morning 01310/29/2023. No history of suicidal ideation or any known physical symptoms including chest pain or difficulty breathing Outcome: Go to ED Now Mother verbalized understanding but states son will not go to the ED. She did reach out to patient but he refused to speak with me. Mother is leaving work now to be with son who is alone at present She is aware of the mental health crisis number [phone] and was also given the number to schedule for behavioral health [phone] Mother was instructed to call 911 for worsening symptoms. She verbalized understanding. Reason for Disposition [1] Depression AND [2] unable to do any of normal activities (e.g., self care, school, work; in comparison to baseline). Protocols used: [id number] documented in this encounter [facility] 06-13-2023 Hospital Discharg e instructions Patient Education 06/13/2023 15:09:20 Laceration, Extremity: Suture, Staple, or Tape Extremity Laceration: Stitches, [place], or Tape A laceration is a cut through the skin. If it is deep, it may require stitches or huber to close so it can heal. Minor cuts may be treated with surgical tape closures, or skin glue. X-rays may be done if something may have entered the skin through the cut. You may also need a tetanus shot if you are not up to date on this vaccine. Home care Follow the healthcare provider s instructions on how to care for the cut. Wash your hands with soap and warm water before and after caring for your wound. This is to help prevent infection. Keep the wound clean and dry. If a bandage was applied and it becomes wet or dirty, replace it. Otherwise, leave it in place for the first 24 hours, then change it once a day or as directed. If stitches or huber were used, clean the wound daily: oAfter removing the bandage, wash the area with soap and water. Use a wet cotton swab to loosen and remove any blood or crust that forms. oAfter cleaning, keep the wound clean and dry. Talk with your healthcare provider before putting any antibiotic ointment on the wound. Reapply the bandage. You may remove the bandage to shower as usual after the first 24 hours, but don't soak the area in water (no swimming) until the stitches or huber are removed. If surgical tape closures were used, keep the area clean and dry. If it becomes wet, blot it dry with a towel. Let the surgical tape fall off on its own. The healthcare provider may prescribe an antibiotic cream or ointment to prevent infection. He or she may also prescribe an antibiotic pill. Don't stop taking this medicine until you have finished it all or the provider tells you to stop. The provider may also prescribe medicine for pain. Follow the instructions for taking these medicines. Don't do activities that may reopen your wound. Follow-up care Follow up with your healthcare provider, or as advised. Most skin wounds heal within 10 days. But an infection may sometimes occur even with proper treatment. Check the wound daily for the signs of infection listed below. Stitches and huber should be removed within 7 to14 days. If surgical tape closures were used, you may remove them after 10 days if they have not fallen off by then. When to seek medical advice Call your healthcare provider right away if any of these occur: Wound bleeding not controlled by direct pressure Signs of infection, including increasing pain in the wound, increasing wound redness or swelling, or pus or bad odor coming from the wound Fever of 100.4 F (38 C) or higher, or as directed by your healthcare provider Stitches or huber come apart or fall out or surgical tape falls off before 7 days Wound edges reopen Wound changes colors Numbness occurs around the wound Decreased movement around the injured area [id number] [employer]. [address] [place] [address]. All rights reserved. This information is not intended as a substitute for professional medical care. Always follow your healthcare professional's instructions. Follow Up Care 06/13/2023 14:25:47 With:Follow up with primary care provider Address:Unknown When:2-4 days With:Call Physician Referral Address:Unknown When:2-4 days [facility] 06-13-2023 Note Discharge Instructions Thank you for allowing [facility] to assist you with your healthcare needs. The following is important discharge information regarding your hospital visit. Diagnosis from Today's Visit Arm laceration Laceration of right upper arm What to Do Next Instructions from Your Care Team You have 5 sutures in your upper arm. Watch out for fevers redness streaking up the arm pus draining from the site. If these occur please return. You can have your sutures removed in 5 to 7 days Discharge Return to Work, School, or Sports (Return to Work, School, or Sports) - Ordered -- 06/14/23, May return to: work, 06/13/23 15:09:00 EDT Post Acute Orders No qualifying data available. You Need to Schedule the Following Appointments Follow Up with Follow up with primary care provider When Within 2-4 days Follow Up with Call Physician Referral When Within 2-4 days Allergies No active allergies Immunizations This Visit Given Vaccine Datetetanus/diphth/pertuss (Tdap) adult/adol 06/13/2023 Medications Please ask your primary doctor or pharmacist before taking any other medication not listed, including over the counter drugs, herbal medications, vitamins and or supplements as they may interact with your home medications. Please take this list to your next doctor s visit. Bring all medications you take, including over the counter medications, herbals and other supplements with you to your doctor s visit. Patients and families are reminded to discard old lists and to update any records with all medication providers or retail pharmacies. Education Materials Extremity Laceration: Stitches, [place], or Tape A laceration is a cut through the skin. If it is deep, it may require stitches or huber to close so it can heal. Minor cuts may be treated with surgical tape closures, or skin glue. X-rays may be done if something may have entered the skin through the cut. You may also need a tetanus shot if you are not up to date on this vaccine. Home care Follow the healthcare provider s instructions on how to care for the cut. Wash your hands with soap and warm water before and after caring for your wound. This is to help prevent infection. Keep the wound clean and dry. If a bandage was applied and it becomes wet or dirty, replace it. Otherwise, leave it in place for the first 24 hours, then change it once a day or as directed. If stitches or huber were used, clean the wound daily: oAfter removing the bandage, wash the area with soap and water. Use a wet cotton swab to loosen and remove any blood or crust that forms. oAfter cleaning, keep the wound clean and dry. Talk with your healthcare provider before putting any antibiotic ointment on the wound. Reapply the bandage. You may remove the bandage to shower as usual after the first 24 hours, but don't soak the area in water (no swimming) until the stitches or huber are removed. If surgical tape closures were used, keep the area clean and dry. If it becomes wet, blot it dry with a towel. Let the surgical tape fall off on its own. The healthcare provider may prescribe an antibiotic cream or ointment to prevent infection. He or she may also prescribe an antibiotic pill. Don't stop taking this medicine until you have finished it all or the provider tells you to stop. The provider may also prescribe medicine for pain. Follow the instructions for taking these medicines. Don't do activities that may reopen your wound. Follow-up care Follow up with your healthcare provider, or as advised. Most skin wounds heal within 10 days. But an infection may sometimes occur even with proper treatment. Check the wound daily for the signs of infection listed below. Stitches and huber should be removed within 7 to14 days. If surgical tape closures were used, you may remove them after 10 days if they have not fallen off by then. When to seek medical advice Call your healthcare provider right away if any of these occur: Wound bleeding not controlled by direct pressure Signs of infection, including increasing pain in the wound, increasing wound redness or swelling, or pus or bad odor coming from the wound Fever of 100.4 F (38 C) or higher, or as directed by your healthcare provider Stitches or huber come apart or fall out or surgical tape falls off before 7 days Wound edges reopen Wound changes colors Numbness occurs around the wound Decreased movement around the injured area [id number] [employer]. [address] [place] [address], [place] [address]. All rights reserved. This information is not intended as a substitute for professional medical care. Always follow your healthcare professional's instructions. Additional Information VACCINATE! IT SAVES LIVES! Members of the community who have not yet received the COVID-19 vaccine and would like to receive it can visit one of [facility] vaccine clinics. There are many vaccine clinic locations within the [facility]. For locations and available times, please visit [email or web address] It is important to note that some COVID mobile vaccine clinics are held outdoors and may be canceled in rainy or stormy conditions. To learn more about pediatric vaccinations (ages 5-11), we invite you to visit the [facility] webpage. [email or web address] [email or web address] To learn more about the COVID-19 vaccine, we invite you to visit the CDC website for a list of frequently asked questions. https://www.cdc.gov/coronavirus/ 2019-ncov/vaccines/faq.html [facility] Patient [facility] Access Instructions: Stay connected with your healthcare team and access your personal medical information anytime with the [facility] Patient Portal. If you would like a full copy of your medical records please contact the [facility] Medical Records Department Wednesday through Wednesday between 8a.m. and 4:30p.m. Please follow the directions below to access the portal: 1.Access the email account you provided upon registration to the [facility].2.Look for an invitation email from [facility].3.Open the email and access the invitation link: [facility].Fill in the required bo to create your account. Sign into [email or web address] with your username and password that you created in the above steps to stay up to date. You can then view a summary of results, a summary of your visits, and the ability to download your summaries to your computer or send the information securely to a physician. Remember that your healthcare information is confidential, so carefully consider who you will allow to register on the [facility] Patient Portal for access to your information. You can also access the [facility] Patient Portal on the [employer]. Simply click on Health Records under Health Data and then click on the [facility] logo. HOW TO SAFELY DISPOSE OF PRESCRIPTION MEDICATIONS Please use one of the following methods to safely dispose of your unused medications. 1.Use a drug disposal kit: the drug disposal pouch allows you to safely discard your old and unused drugs. Ask your nurse to give you one when you are discharged.2.Visit a local take-back location: Many local pharmacies and police departments have programs that collect old and unwanted prescription drugs. Call your local pharmacy or go to http://[employer].StreamLine Call/1H5Gg0k to find one close to you.3.Make use of household items: Use cat litter or old coffee grounds to dispose medications if other options are not available. Mix your drugs with these household products, seal them in an airtight container and throw it into the garbage. Call [facility]: [phone] to be sure your drugs can be disposed of in this way. Some medicines may require a different approach.4.Never flush your medications down the toilet. IF YOU HAVE BEEN PRESCRIBED AN OPIOIDS FOR PAIN If you have been prescribed an opioid (such as hydrocodone, oxycodone or morphine), it is critical to understand the possible side effects and risks of opioid pain medications. Even when taken as directed, opioids can have several side effects including: Tolerance, meaning you might need to take more of a medication for the same pain relief. Nausea, vomiting and/or constipation. Sleepiness, dizziness, dry mouth, confusion, depression or itching. Physical dependence, meaning you have withdrawal symptoms when a medication is stopped ? this can develop within a few days. KNOW YOUR RESPONSIBILITIES It is important to know exactly how much and how often to take the opioid pain medications you are prescribed. Never take opioids in higher amounts or more often than prescribed. Do not combine opioids with alcohol or other drugs that cause drowsiness, such as benzodiazepines, also known as benzos, including diazepam and alprazolam, muscle relaxants or sleep aids. Never sell or share prescription opioids. This is illegal. Store opioids in a secure place and out of reach of others (including children, family, friends and visitors). The last page(s) of this document has been signed and retained as a CHART COPY Signatures Patient Education Materials Laceration, Extremity: Suture, Staple, or Tape Medication Leaflets My discharge plan and instructions have been reviewed and explained to me and I,CLARITZA EVANS understand my current condition and have read and understand these discharge instructions. I have received a written copy of the plan/instructions. If I have questions, I am aware that I should contact my doctor. Patient/Shuttle Filler Signature: Date/Time: Relationship to Patient: Witness Name/Signature: Date/Time: [facility] Evaluation + Plan note No data available for this section [facility] Evaluation note Diagnosis Anxiety with depression- Primary Body mass index (BMI) less than 19 in adult [facility] Generalized anxiety disorder- Primary Major depressive disorder, recurrent episode, mild (HCC) Major depressive disorder, recurrent episode, mild documented in this encounter [facility] Summary Purpose Family History No Family History Records FoundNo Family History Records Found No data available for this section No Family History Records FoundNo Family History Records Found Advance Directives No Advanced Directives Records FoundNo Advanced Directives Records FoundNo Advanced Directives Records FoundNo Advanced Directives Records Found Reason for Referral Specialty Diagnoses / Procedures Referred By Contac t Referred To Contact Psychology Diagnoses Generalized anxiety disorder Major depressive disorder, recurrent episode, mild (HCC) Procedures CONSULT TO PSYCHOLOGY OFFICE/OUTPATIENT [facility] 60 MINUTES Jonelle Humphreys, TAPER AND FLOATER.SCIENTIFIC RESEARCH ASSOCIATE [address] [facility] [address] [place] [address] Referral ID Status Reason Start Date Expiration Date Visits Requested Visits Authorized [id number] Pending Review PCP Requested Referral 03/10/2024 03/10/2025 1 1 Specialty Diagnoses / Procedures Referred By Contac t Referred To Contact Diagnoses Anxiety with depression Procedures CONSULT TO PSYCHIATRY OFFICE/OUTPATIENT [facility] 60 MINUTES Octavio Forrester DO [address] [place] [address] Referral ID Status Reason Start Date Expiration Date Visits Requested Visits Authorized [id number] Pending Review PCP Requested Referral 11/15/2023 11/14/2024 1 1 Additional Source Comments (unrecognized sect ion and content) No Status Records FoundNo Status Records FoundNo Status Records FoundNo Status Records Found INFORMATION SOURCE (unrecogn ized section and content) DATE CREATED AUTHOR 07/16/2020 [facility] DATE CREATED AUTHOR AUTHOR'S ORGANIZ ATION 03/25/2022 [facility] DATE CREATED AUTHOR AUTHOR'S ORGANIZ ATION 06/17/2023 [facility] ([place]) DATE CREATED AUTHOR AUTHOR'S ORGANIZ ATION 03/15/2024 [facility] Patient Care team informatio n (unrecognized section and content) Aircraft Communicator Relationship Specialty Start Date End Date Martell Yeung MD [address] [place] [address] PCP - General Family Medicine 12/16/15 Aircraft Communicator Relationship Specialty Start Date End Date Octavio Forrester DO [address] [place] [address] PCP - General Family Medicine 11/15/23 Aircraft Communicator Relationship Specialty Start Date End Date Octavio Forrester DO [address] [place] [id number] PCP - General Family Medicine 11/15/23 Source Comments (unrecognize d section and content) In the event this informatio n is protected by the Federal Confidentiality of Alcohol and Drug Abuse Patient Records regulations: The Federal rules restrict any use of the information to criminally investigate or prosecute any alcohol or drug abuse patient.[facility] the event this information is protected by the Federal Confidentiality of Alcohol and Drug Abuse Patient Records regulations: The Federal rules restrict any use of the information to criminally investigate or prosecute any alcohol or drug abuse patient.[facility] Hospital[facility] the event this information is protected by the Federal Confidentiality of Alcohol and Drug Abuse Patient Records regulations: The Federal rules restrict any use of the information to criminally investigate or prosecute any alcohol or drug abuse patient.[facility] the event this information is protected by the Federal Confidentiality of Alcohol and Drug Abuse Patient Records regulations: The Federal rules restrict any use of the information to criminally investigate or prosecute any alcohol or drug abuse patient.[facility] Reason for Visit (unrecogniz ed section and content) Reason Comments Depression Reason Comments Consult Consult to psychiatr y, anxiety with depression, confirm [id number] Reason Comments Establish Care Depression Feeling low the last couple weeks Anxiety Feels like he has canales d anxiety for a long time please see depression screening Reason Comments Anxiety Depression FOR RECORDS PERTAINING TO PATIENTS WHO ARE OR HAVE BEEN ENROLLED IN A CHEMICAL DEPENDENCY/SUBSTANCEABUSE PROGRAM, SOME INFORMATION MAY BE OMITTED. This clinical summary was aggregated from multiple sources. Caution should be exercised in using it in the provision of clinical care. This summary normalizes information from multiple sources, and as a consequence, information in this document may materially change the coding, format and clinical context of patient data. In addition, data may be omitted in some cases. CLINICAL DECISIONS SHOULD BE BASED ON THE PRIMARY CLINICAL RECORDS. [employer] provides no warranty or guarantee of the accuracy or completeness of information in this document.
--- NOTE | 2025-01-16 22:41 | EDS_ITS ---
HPI History of Present Illness Chief Complaint: Laceration Informant: patient Narrative Narrative: Patient is a 19-year-old male who is otherwise healthy. He states that roughly 4 hours ago he was stripping wire and the blade slipped and he sustained a laceration to his left fourth finger. He reports he is up-to-date on his tetanus. He denies any numbness tingling or weakness. He states the area bled for a little while and then stopped once he was holding pressure. He denies any history of bleeding disorder or blood thinner use. He denies any other injuries. He states he is concerned that he will require stitches and secondary to this comes to the hospital for evaluation Patient reports he is [id number]. PFSH PFS Home Medications ?Medication ?Instructions ?Recorded ?Last Taken ?Type cephalexin 500 mg capsule 500 mg PO BID 7 days #14 cap s 01/16/25 Unknown Rx Allergy/AdvReac Type Severity Reaction Status Date / Time No Known Allergies Allergy Verified 01/16/25 21:31 Surgical History (Updated 01/16/25 @ 22:01 by Dulce Bardales) Hx of appendectomy Social History Smoking Status: Never smoker ROS ROS ED Constitutional Constitutional ED: Denies chills or fever(s) Cardiovascular Cardiovascular: Denies chest pain Respiratory/Chest Respiratory/Chest: Denies cough or dyspnea Gastrointestinal Gastrointestinal: Denies abdominal pain, diarrhea, nausea or vomiting Musculoskeletal Musculoskeletal: Reports other Details: Positive left fourth finger pain/cut Integumentary Reports other Details: Positive laceration left fourth finger Neurologic Neurologic: Denies headache(s), paresthesias or weakness Hematologic/Lymphatic Hematologic/Lymphatic: Denies easy bleeding or easy bruising EXAM Physical Exam Const Vital Signs: 01/16/25 21:31 01/16/25 22:07 01/16/25 23:36 Temperature 97.1 F L 97.7 F L Temperature Source Temporal Pulse Rate 80 75 Respiratory Rate 18 16 Respiratory Effort Normal Non-Labored Respiratory Pattern Normal Blood Pressure 126/83 H 120/85 H Blood Pressure Mean 97 96 Pulse Ox 100 100 Oxygen Delivery Method Room Air Positive well nourished and well developed General Appearance ED: well developed HEENT HEENT Narrative: Normocephalic atraumatic Eyes PERRL and EOMs intact bilaterally General Eye ED: Negative for scleral icterus Neck supple Resp normal respiratory effort and clear to auscultation bilaterally Cardio regular rate and regular rhythm Extremity Extremity Narrative: Left upper extremity is neurovascularly intact; AIN/PIN are intact and normal. Patient has a 1.5 cm linear subcutaneous layer deep laceration to the radial aspect of the left fourth digit distal phalanx just lateral to the nail. Minimal ooze of blood. No retained foreign body. No nailbed damage. No sign of arterial injury. No ligamentous or tendon injury. Remainder of the exam is normal Neuro oriented x3, CN's II-XII intact bilaterally and no sensory deficits noted Sensorium / Orientation: alert Motor Exam: strength 5/5 throughout Psych mental status grossly normal Skin Skin Narrative: Laceration to the finger pad of the left fourth finger as documented above without surrounding secondary findings of infection MDM MDM MDM Narrative Medical decision making narrative: Patient arrived to the ER with stable vitals and sustained a simple laceration to his left fourth finger. By physical exam there is no sign of ligamentous or tendon injury he does not have nailbed damage there is no arterial injury and no findings suggest tuft fracture/open fracture. Therefore at this time do not feel the need for imaging or laboratory studies. The patient also reports his tetanus status is current so therefore there is no need for tetanus update. As the wound is moderate contaminated from the dirty blade he was using to strip wire he does have higher risk for infection so I will place him on prophylactic antibiotic. However now that the wound is closed there is no need for further intervention and he is otherwise safer discharge Patient had the left fourth finger cleaned with chlorhexidine. He was then anesthetized using 8 mL of 2% lidocaine without epinephrine and digital block fashion. The laceration was then copiously irrigated with normal saline. It was then cleaned once again with chlorhexidine. Following this six 4-0 Ethilon sutures were placed in simple interrupted fashion which brought the wound edges together well with good approximation. Patient tolerated procedure well without complication. History & Record Review Discussion w/independent historian: Patient Discharge Plan Triage Chief Complaint: Laceration ED Provider: German Linares Dx/Rx/DC Orders Clinical Impression: Finger laceration Instructions: ED Hand Laceration- All Closures Prescriptions: New cephalexin 500 mg capsule 500 mg PO BID 7 Days Qty: 14 0RF Primary Care Provider: Aakash Yeung Referrals: Aakash Yeung MD [Primary Care Provider, Family Practice] Activity Restrictions/Additional Instructions: Please take the antibiotic as directed to prevent secondary infection. Allow least 4 hours of air exposure per day to help the wound heal. Return to the ER or see your family doctor in 7 to 10 days for suture removal. Print Language: Romanian Disposition Disposition: Home, Self Care Discharge Date/Time: 01/16/25 23:37
[2025-01-16] MEDS: Lidocaine 2% (20 ml mdv) 20 ML Vial INFILT (22:50)
[2025-01-16 23:36] VITALS: BP 120/85; PULSE 75; RESP 16; TEMP 36.5; O2SAT 100
== END 2025-01-16 23:37 | disposition home or self-care (01) ==
PROVIDERS: Emergency Provider Emergency Medicine; PCP Family Medicine; Visit Provider Emergency Medicine
DX: S61.215A Laceration without foreign body of left ring finger without damage to nail, initial encounter (principal); X58.XXXA Exposure to other specified factors, initial encounter
CPT/HCPCS: 12001; 99284